=== PATIENT | female | born 1945 | race Two or more races ===

== ENCOUNTER → 2024-01-14 | Outpatient (CLI) | payer MEDICARE, MEDICAID, SELFPAY ==
[2024-01-14 10:05] LABS: Collection Type, Urine Clean Catch
[2024-01-14 10:29] LABS: Basophils # (Auto) 0.1 Thou/mm3 (0.0-0.2); Basophils % (Auto) 1 % (0-2.5); Eosinophils # (Auto) 0.2 Thou/mm3 (0.0-0.5); Eosinophils % (Auto) 4 % (0-10); Hematocrit 44.4 % (36.0-46.0); Hemoglobin 14.5 g/dL (12.0-16.0); Immature Granulocytes % (Auto) 0 % (0-0); Immature Granulocytes Auto 0.01 Thou/mm3 (0.00-0.00); Lymphocytes # (Auto) 2.3 Thou/mm3 (1.0-4.8); Lymphocytes % (Auto) 38 % (10-50); Mean Corpuscular HGB Conc 32.7 g/dl (31.0-37.0); Mean Corpuscular Hemoglobin 31.3 pg (25.0-35.0); Mean Corpuscular Volume 96 fL (80-100); Monocytes # (Auto) 0.3 Thou/mm3 (0.0-0.8); Monocytes % (Auto) 5 % (0-12); Neutrophils # (Auto) 3.2 Thou/mm3 (1.8-7.7); Neutrophils % (Auto) 52 % (37-80); Nucleated Red Blood Cell % 0 /100 WBC (0); Platelet Count 250 Thou/mm3 (140-440); RDW Standard Deviation 49.7 fL (36.4-46.3); Red Blood Count 4.64 Miln/mm3 (4.00-5.20); White Blood Count 6.2 Thou/mm3 (3.6-11.0)
[2024-01-14 10:37] LABS: Creatinine MALB Rnd Ur 88 mg/dL (30-125); Microalbumin, Random Urine < 3 mg/L (0-300)
[2024-01-14 10:40] LABS: Alanine Aminotransferase 16 U/L (10-49); Albumin, Serum 4.5 gm/dL (3.4-4.8); Albumin/Globulin Ratio 1.6 (1.2-2.2); Alkaline Phosphatase 60 U/L (46-116); Anion Gap 7 (7-16); Aspartate Amino Transferase 19 U/L (0-34); BUN/Creatinine Ratio 21 Ratio (12-20); Bilirubin,Total 0.5 mg/dL (0.3-1.2); Blood Urea Nitrogen 15 mg/dL (9-23); Calcium 9.3 mg/dL (8.3-10.6); Calcium (Corrected) 9.3 mg/dL (8.5-10.1); Carbon Dioxide 28.3 mMol/L (20.0-31.0); Cardiac Risk Estimate 3.7 RATIO (3.7-5.6); Chloride 105 mMol/L (98-107); Cholesterol 231 mg/dL (132-200); Creatinine (Component) 0.7 mg/dL (0.6-1.3); Globulin 2.8 gm/dL (2.3-3.5); Glucose 126 mg/dL (74-106); HDL Cholesterol 62 mg/dL (40-60); LDL Cholesterol,Calculated 122 mg/dL (0-130); Osmolality,Calculated 282 (275-295); Potassium 4.6 mMol/L (3.4-5.1); Sodium 140 mMol/L (136-145); Total Protein 7.3 gm/dL (5.7-8.2); Triglycerides 235 mg/dL (30-150); eGFR > 60 See Note
[2024-01-14 10:41] LABS: Bacteria,Urine 2+; Bilirubin,Urine Negative (Negative); Blood,Urine Negative (Negative); Clarity,Urine Hazy (Clear/Hazy); Color,Urine Lt-Yellow (Lt Yel-Yel); Glucose, Urine 4+ (Negative); Ketones,Urine Negative (Negative); Leukocyte Esterase,Urine Positive (Negative); Nitrite,Urine Negative (Negative); PH,Urine 5.5 (5.0-7.0); Protein,Urine Negative (Neg - Trace); RBC,Urine 2 /hpf (0-3); Specific Gravity,Urine 1.027 (1.001-1.035); Squamous Epithelial Cell,Urine 1 /hpf (0-5); Urobilinogen,Urine Negative mg/dL (0.0-1.0); WBC,Urine 16 /hpf (0-5)
[2024-01-14 10:51] LABS: Glucose Estimated Average 137 mg/dL (80-131); Hemoglobin A1C 6.4 % Hgb (4.8-6.0)
[2024-01-14 10:58] LABS: Ferritin 29 ng/mL (7.3-270.7); Total Iron Binding Capacity 360 mcg/dL (250-425)
[2024-01-14 11:08] LABS: Iron 83 mcg/dL (50-170); Percent Iron Saturation 23 % (20-55); Unsaturated Iron Binding 277 (225-295)
[2024-01-14 11:14] LABS: Folate 14.81 ng/mL (>5.38); Hepatitis C Antibody Non Reactive (Non React); Vitamin B12 1949 pg/mL (211-911); Vitamin D 25 Hydroxy Total 33.2 ng/mL (7.3-40.2)
== END | disposition home or self-care (01) ==
LOC: COPL 09:12
PROVIDERS: PCP Family Medicine; Referring Provider Nurse Practitioner Family; Visit Provider Nurse Practitioner Family
DX: D64.9 Anemia, unspecified (principal); I10 Essential (primary) hypertension; E78.5 Hyperlipidemia, unspecified; E11.9 Type 2 diabetes mellitus without complications; E55.9 Vitamin D deficiency, unspecified; Z11.59 Encounter for screening for other viral diseases
CPT/HCPCS: 36415; 80053; 80061; 81001; 82043; 82306; 82570; 82607; 82728; 82746; 83036; 83540; 83550; 85025; 86803

== ENCOUNTER → 2024-06-16 | Outpatient (CLI) | payer MEDICARE, MEDICAID, SELFPAY ==
--- NOTE | 2024-06-16 | XR_ITS ---
Examination: Retroperitoneal ultrasound, complete Technique: Multiple high resolution grayscale images of the retroperitoneum obtained, including kidneys and bladder. Exam date and time:June 16, 2024 1214 hours INDICATIONS: Urinary incontinence 2 years FINDINGS: Right kidney 12.6 cm in the cortex 2.3 cm 8mm midpole cyst 8 mm midpole calculus Left kidney 10.9 cm cortex 2.0 cm Mild bilateral renal parenchymal scar formation No bladder mass or bladder calculi Bladder prevoid volume 222 cc IMPRESSION: 8mm nonobstructing right renal calculus Mild bilateral renal parenchymal scar formation
--- NOTE | 2024-06-16 12:36 | XR_ITS ---
Examination: Diagnostic digital mammography, unilateral, left Computer aided detection 3-D breast Tomosynthesis, unilateral Date and time of exam: June 16, 2024 at 1253 hours INDICATIONS: Mammogram December 28, 2023 small focal asymmetry outer left breast CC view Technique: Nonmagnified MLO, CC views of the left breast have been obtained, reconstructed from 3-D Tomosynthesis images. R2 computer aided detection program utilized for evaluation of suspicious masses and/or abnormal calcifications. 3-D Tomosynthesis images obtained. Findings: Scattered areas of fibroglandular density. Benign calcifications. No interval suspicious masses Impression: BI-RADS category 2: Benign findings Recommend yearly follow-up mammography
== END | disposition home or self-care (01) ==
PROVIDERS: PCP Family Medicine; Referring Provider Nurse Practitioner Family; Visit Provider Urology
DX: R92.322 Mammographic fibroglandular density, left breast (principal); R92.1 Mammographic calcification found on diagnostic imaging of breast; N20.0 Calculus of kidney; N28.89 Other specified disorders of kidney and ureter
CPT/HCPCS: 76770; 77061; 77065; G0279

== ENCOUNTER → 2024-06-26 | Outpatient (BNVA) | payer MEDICARE, MEDICAID, SELFPAY | END | disposition home or self-care (01) | PROVIDERS: PCP Family Medicine; Referring Provider Family Medicine; Visit Provider Urology | DX: N39.46 Mixed incontinence (principal); I10 Essential (primary) hypertension; E11.9 Type 2 diabetes mellitus without complications; E66.9 Obesity, unspecified; Z68.33 Body mass index [BMI] 33.0-33.9, adult | CPT/HCPCS: 81003; 99212; G0463 ==

== ENCOUNTER 2024-08-16 15:14 | Emergency (ER) | payer MEDICARE, MEDICAID, SELFPAY ==
--- NOTE | 2024-08-16 | XR_ITS ---
MRI abdomen, without contrast. MRCP Date and time of exam: August 16, 2024 1815 hours INDICATIONS: Elevated total bilirubin and laboratory examination today, right upper abdominal pain today Technique: Multiple axial and coronal images of the abdomen have been obtained with the Siemens 1.5T MRI scanner. Images obtained included T1 weighted transverse images, T2-weighted transverse images, T2-weighted transverse images fat-suppressed, T2 weighted haste fat suppressed transverse images, T1 weighted images, in and out of phase images, T2-weighted coronal images, breath hold, T2 weighted haze coronal images as well as T2 weighted coronal thick slab images, MRCP. Findings: Liver 17 cm no intrahepatic biliary tract dilatation Multiple subcentimeter gallstones Gallbladder wall does not appear thickened Common bile duct 5 mm No common hepatic or common bile duct stones Spleen is not enlarged No pancreatic mass Pancreatic duct is not dilated No ascites No hydronephrosis IMPRESSION: Rule out hepatomegaly Cholelithiasis, negative for cholecystitis No common hepatic or common bile duct stones
[2024-08-16 15:15] VITALS: BMI 37.8
[2024-08-16 15:32] VITALS: BP 109/69; PULSE 80; RESP 20; TEMP 36.5; O2SAT 95
--- NOTE | 2024-08-16 15:37 | EKG_ITS ---
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
--- NOTE | 2024-08-16 15:37 | XR_ITS ---
Examination: PA lateral chest 2 views Technique: Upright PA lateral chest 2 views Date and time: August 16, 2024, 1554 hrs. Indications: Chest pain today Comparison: July 12, 2017 Findings: Mild enlargement cardiac contour. Retrocardiac gastric hernia. Mild opacity at the right lung base. Mild Central pulmonary arteries Prominent osteopenia Impression: Suspicious for pulmonary artery hypertension Early pneumonia right base
--- NOTE | 2024-08-16 15:40 | EDRME_ITS ---
Rapid Medical Screening Exam E Arrival date/time: 08/16/24 15:14 This is a 79-year-old female that comes to the emergency room with complaints of chest pain, chest tightness epigastric area pain as well that radiates to his back. Patient has a history of diabetes, hyperlipidemia, high blood pressure. Patient has medical records manager at bedside. Patient also complains of nausea. I have greeted and performed a focused initial assessment of this patient. Initial appropriate labs ordered at this time. A comprehensive ED assessment and evaluation of the patient and analysis of all test and completion of medical decision making process will be conducted by additional ED provider. Chief Complaint: Abdominal Pain Time Seen by Provider: 08/16/24 15:21 Vital signs: Vital Signs Temperature 97.7 F 08/16/24 15:32 Pulse Rate 80 08/16/24 15:32 Respiratory Rate 20 08/16/24 15:32 Blood Pressure 109/69 08/16/24 15:32 Pulse Oximetry (%) 95 08/16/24 15:32 Oxygen Delivery Method Room Air 08/16/24 15:32
[2024-08-16 16:22] LABS: Basophils % (Auto) 0 % (0-2.5); Eosinophils % (Auto) 0 % (0-10); Hematocrit 43.7 % (36.0-46.0); Hemoglobin 14.7 g/dL (12.0-16.0); Immature Granulocytes % (Auto) 0 % (0-0); Immature Granulocytes Auto 0.03 Thou/mm3 (0.00-0.00); Lymphocytes # (Auto) 0.5 Thou/mm3 (1.0-4.8); Lymphocytes % (Auto) 5 % (10-50); Mean Corpuscular HGB Conc 33.6 g/dl (31.0-37.0); Mean Corpuscular Hemoglobin 31.8 pg (25.0-35.0); Mean Corpuscular Volume 95 fL (80-100); Monocytes # (Auto) 0.2 Thou/mm3 (0.0-0.8); Monocytes % (Auto) 2 % (0-12); Neutrophils # (Auto) 10.2 Thou/mm3 (1.8-7.7); Neutrophils % (Auto) 93 % (37-80); Nucleated Red Blood Cell % 0 /100 WBC (0); Platelet Count 227 Thou/mm3 (140-440); Red Blood Count 4.62 Miln/mm3 (4.00-5.20); White Blood Count 10.9 Thou/mm3 (3.6-11.0)
[2024-08-16 16:43] LABS: Collection Type, Urine Voided
[2024-08-16 16:52] LABS: B-Type Natriuretic Peptide < 20 pg/mL (0-100)
[2024-08-16 16:54] LABS: Alanine Aminotransferase 284 U/L (10-49); Albumin, Serum 4.4 gm/dL (3.4-4.8); Albumin/Globulin Ratio 1.4 (1.2-2.2); Alkaline Phosphatase 181 U/L (46-116); Anion Gap 9 (7-16); Aspartate Amino Transferase 656 U/L (0-34); BUN/Creatinine Ratio 14 Ratio (12-20); Bilirubin,Total 1.7 mg/dL (0.3-1.2); Blood Urea Nitrogen 13 mg/dL (9-23); Carbon Dioxide 28.5 mMol/L (20.0-31.0); Chloride 108 mMol/L (98-107); Creatinine (Component) 0.9 mg/dL (0.6-1.3); Estimated Creatinine Clearance 52.8 mL/min (>60); Globulin 3.2 gm/dL (2.3-3.5); Glucose 166 mg/dL (74-106); Lipase 48 U/L (12-53); Osmolality,Calculated 292 (275-295); Potassium 3.7 mMol/L (3.4-5.1); Sodium 145 mMol/L (136-145); Total Protein 7.6 gm/dL (5.7-8.2); Troponin I < 0.020 ng/mL (0.0-0.045); eGFR > 60 See Note
[2024-08-16 17:11] LABS: Bacteria,Urine 4+; Bilirubin,Urine Negative (Negative); Blood,Urine Negative (Negative); Budding Yeast,Urine Present; Color,Urine Yellow (Lt Yel-Yel); Glucose, Urine 4+ (Negative); Ketones,Urine Trace (Negative); Leukocyte Esterase,Urine Positive (Negative); Nitrite,Urine Negative (Negative); Protein,Urine Negative (Neg - Trace); RBC,Urine 1 /hpf (0-3); Specific Gravity,Urine 1.033 (1.001-1.035); Squamous Epithelial Cell,Urine 2 /hpf (0-5); WBC,Urine 8 /hpf (0-5)
[2024-08-16 17:13] LABS: Clarity,Urine Hazy (Clear/Hazy); Culture Indicated,Urine Yes
--- NOTE | 2024-08-16 17:36 | EDNOTE_ITS ---
<Statement entered by Jacqueline Zazueta MD - 08/17/24 04:32> As co-signing physician, I was present and available for consult prn. I concur with the plan and care as documented by the midlevel provider. ED Abdominal Pain RME/HPI General Chief Complaint: Abdominal Pain Stated complaint: EPIGASTIC PAIN SINCE 0900 Time seen by provider: 08/16/24 15:21 Arrival date/time: 08/16/24 15:14 RME / HPI RME / HPI narrative: 79-year-old female that comes to the emergency room with complaints of chest pain, chest tightness epigastric area pain as well that radiates to his back. Patient has a history of diabetes, hyperlipidemia, high blood pressure. Patient has park activities coordinator at bedside. Patient also complains of nausea. Patient denies any fever. Denies any other complaints no medication was taken prior to arrival. Related Data Home Medications ?Medication ?Instructions ?Recorded ?Confirmed aspirin 81 mg tablet,delayed 81 mg PO QDAY 08/15/17 release (Aspir-) atenolol 100 mg tablet 100 mg PO QDAY 08/15/1710/13 folic acid 1 mg tablet 1 mg PO QDAY 08/15/17 ibuprofen 600 mg tablet 600 mg PO BID PRN Pain 08/1506/26/24 loratadine 10 mg tablet 10 mg PO QDAY 08/15/1706/26 losartan 50 mg tablet 50 mg PO QDAY 08/15/1706/26 methotrexate 2.5 mg/mL oral 2.5 mg PO QDAY 08/15/17 solution estradiol 0.01% (0.1 mg/gram) 2 g vaginal DIRECTED 06/26/24 06/26/24 vaginal cream (Estrace) vibegron 75 mg tablet (Gemtesa) 75 mg PO QDAY 06/26/24 06/26/24 Previous Rx's ?Medication ?Instructions ?Recorded meloxicam 15 mg tablet (Mobic) 15 mg PO QDAY #30 tabs 02/06/16 Acetaminophen ER * (TYLENOL ER *) 650 mg PO Q8HR PRN P AIN OR FEVER > 03/03/17 101 ##30 Loratadine/Pseudoephedrine (24 1 tab PO QDAY ##10 02/19 05/06 HOUR) * (CLARITIN D (24 HOUR) *) Promethazine Hcl/Dextromethorphan 1 tsp PO Q6HR PRN co ugh #6 oz 03/03/17 SYRUP * (PHENERGAN DM SYRUP *) ibuprofen 600 mg tablet 600 mg PO Q6HR PRN PAIN OR F EVER > 03/03/17 101 #30 tabs cephalexin 500 mg capsule 500 mg PO Q6H 7 days #28 cap s 08/16/24 dicyclomine 20 mg tablet 20 mg PO QID PRN abdominal p ain 08/16/24 #20 tabs ondansetron HCl 4 mg tablet 4 mg PO TID PRN nausea and 08/16/24 vomiting 5 days #20 tabs Allergies Allergy/AdvReac Type Severity Reaction Status Date / Time No Known Allergies Allergy Unverified 08/16/24 15:17 Review of Systems Review of Systems Narrative Review of Systems: Review of system reviewed and within normal limits except mentioned in HPI ED Exam Narrative Physical exam: VITAL SIGNS: Reviewed. GENERAL APPEARANCE: Alert and interactive, follows commands, no acute distress, HEAD AND FACE: Non-traumatic. ENT: PERRL, pink conjunctivitis, eyelid no trauma, Mucous membrane moist. NECK: Supple, nontender, no nuchal rigidity. CHEST: No tenderness, no crepitus, no paradoxical movement, no retractions. LUNGS: Clear, well ventilated, symmetric, no rales, no wheezing, no ronchi, no stridor, good breath sounds bilaterally. HEART: Regular rate, regular rhythm, no murmur, no gallops. ABDOMEN: Soft, positive bowel sounds, nondistended, no guarding, right upper quadrant tenderness, no rebound, no masses, RECTAL: Deferred. GENITAL: Deferred. NEUROLOGICAL: Gross motor function intact sensory function intact, Appropriate for age. MUSCULOSKELETAL: low back nontender, full range of motion. EXTREMITIES: Nontender, full range of motion. SKIN: Color pink, dry, no rash, no lacerations, no abrasions, no contusions. LYMPHATICS: Deferred. Course Quality Measures none Orders Category Date Time Status EKG (ED ONLY) *Do not use* NOW Care 08/16/24 15:38 Completed MRI Screening NOW Care 08/16/24 17:33 Active EKG (ED Only) Stat Exams 08/16/24 15:37 Draft MR MRCP Stat Exams 08/16/24 Completed XR chest 2V Stat Exams 08/16/24 15:37 Completed BNP [B-Type Natriuretic Peptide] Stat Lab 08/16/24 16:13 Completed Bilirubin,Direct Stat Lab 08/16/24 18:02 Completed CBC Stat Lab 08/16/24 16:13 Completed Comprehensive Metabolic Panel Stat Lab 08/16/24 16:13 Completed Hepatitis Acute Panel Stat Lab 08/16/24 18:02 Received Lipase Stat Lab 08/16/24 16:13 Completed Troponin I Stat Lab 08/16/24 16:13 Completed Urinalysis, C/S if Indicated Stat Lab 08/16/24 16:20 Completed Urine Culture Stat Lab 08/16/24 16:20 Received Famotidine Inj [Pepcid Inj] Med 08/16/24 17:33 Discontinued 20 mg IVP X1 ONE Ondansetron Inj [Zofran Inj] Med 08/16/24 17:33 Discontinued 4 mg IVP X1 ONE Piper/Tazo 3.375 gm Premix [Zosyn] Med 08/16/24 17:36 Discontinued 3.375 gm in 50 ml IV X1 Ringers Lactated 1000 ml [Lactated Ringers] 1,000 ml Med 08/16/24 17:34 Discontinued IV 999 mls/hr Vital Signs Vital signs: Vital Signs Temperature 97.7 F 08/16/24 15:32 Pulse Rate 80 08/16/24 15:32 Respiratory Rate 20 08/16/24 15:32 Blood Pressure 109/69 08/16/24 15:32 Pulse Oximetry (%) 95 08/16/24 15:32 Oxygen Delivery Method Room Air 08/16/24 15:32 Abdominal Pain MDM MDM Narrative MDM Narrative:: 79-year-old female that comes to the emergency room with complaints of chest pain, chest tightness epigastric area pain as well that radiates to his back. Patient has a history of diabetes, hyperlipidemia, high blood pressure. Patient has park activities coordinator at bedside. Patient also complains of nausea. Patient denies any fever. Denies any other complaints no medication was taken prior to arrival. EKG shows sinus rhythm, ventricular rate of 84 bpm, no ST segment elevation dep ression noted. Patient's laboratory workup is significant for UTI, patient total bili was noted to be slightly elevated 1.7, direct bili 1.0 AST of 650 the 6, alkaline phos of 181, ALT of 284. The rest of the labs unremarkable. MRCP showed cholelithiasis with no sign of acute cholecystitis. Common bile duct stone noted. Patient data External records reviewed:: None Clinical information provided by:: patient Social determinants that could affect healthcare access:: none Patient has the following chronic illnesses:: None How is presenting disease/condition affected by chronic disease/condition?: no chronic disease Evaluation data The following diagnostics were reviewed and interpreted by me:: lab results, radiology exam(s) and EKG tracing(s) Lab and/or radiology exams considered but not ordered:: None Interpretation Summary: See results MDM Medications / Prescriptions Medications or Prescriptions considered but not ordered:: None Medication administrations:: Medication Administration History Discontinued Medications Famotidine (Famotidine Inj 10 Mg/Ml Vial 2 Ml) 20 mg IVP X1 ONE Stop: 08/16/24 17:34 Last Admin: 08/16/24 17:56 Dose: 20 mg Documented By: Admin: 08/16/24 17:55 Dose: 20 mg Documented By: LISBET Lactated Ringer's (Lactated Ringers) 1,000 mls @ 999 mls/hr IV .Q1H1M ONE Stop: 08/16/24 18:34 Last Infusion: 08/16/24 20:50 Dose: Infused Documented By: Admin: 08/16/24 19:40 Dose: 999 mls/hr Documented By: ATQUERIA Piperacillin/Tazobactam/Dextrose (Zosyn) 3.375 gm in 50 mls @ 100 mls/hr IV X1 ONE Stop: 08/16/24 18:05 Last Infusion: 08/16/24 20:13 Dose: Infused Documented By: Admin: 08/16/24 19:40 Dose: 100 mls/hr Documented By: TAQUERIA Ondansetron HCl (Ondansetron Inj 2 Mg/Ml Inj 2 Ml) 4 mg IVP X1 ONE; Protocol Stop: 08/16/24 17:34 Last Admin: 08/16/24 19:41 Dose: Not Given Documented By: TAQUERIA Non-Admin Reason: Patient Refused IV Zosyn, Zofran, IV fluids and Pepcid Consultations Consultation(s) initiated? (list below): No Diagnosis Differential diagnosis abdominal pain: abdominal pain, diverticulitis, pancreatitis and other (Choledocholithiasis, UTI) Most likely diagnosis given after review of the tests above:: Cholecystitis, UTI, no sign of acute cholecystitis Admission Indicated Admission indicated?: not indicated Explain why admission is indicated or not indicated:: Stable Admission Request Was there a request for admission?: No Disposition Plan Disposition Plan: Discharge Discharge Attestation Discharge Attestation: The patient and all family members were given an opportunity to ask questions and understood the discharge instructions. Discharge instructions specifically effects, indications for sooner follow up or return to the emergency department, and the expected course of current diagnosis. Patient condition: Stable Discharge Plan Plan Patient Disposition: HOME (Self Care) Discharge Disposition comment: Stable Prescriptions/Referrals Prescriptions/Med Rec: New ondansetron HCl 4 mg tablet 4 mg PO TID PRN (Reason: nausea and vomiting) 5 Days Qty: 20 0RF cephalexin 500 mg capsule 500 mg PO Q6H 7 Days Qty: 28 0RF dicyclomine 20 mg tablet 20 mg PO QID PRN (Reason: abdominal pain) Qty: 20 0RF No Action estradiol [Estrace] 0.01 % (0.1 mg/gram) cream 2 g vaginal DIRECTED Patient Comments: Twice a week Gemtesa 75 mg tablet 75 mg PO QDAY meloxicam [Mobic] 15 MG tablet 15 mg PO QDAY Qty: 30 0RF Acetaminophen ER * (TYLENOL ER *) 650 MG TABLET.ER 650 mg PO Q8HR PRN (Reason: PAIN OR FEVER > 101) Qty: 30 0RF ibuprofen 600 MG tablet 600 mg PO Q6HR PRN (Reason: PAIN OR FEVER > 101) Qty: 30 0RF Loratadine/Pseudoephedrine (24 HOUR) * (CLARITIN D (24 HOUR) *) 1 EACH TAB.SR.24H 1 tab PO QDAY Qty: 10 0RF Promethazine Hcl/Dextromethorphan SYRUP * (PHENERGAN DM SYRUP *) 473 ML syrup 1 tsp PO Q6HR PRN (Reason: cough) Qty: 6 0RF losartan 50 mg Tablet 50 mg PO QDAY atenolol 100 mg Tablet 100 mg PO QDAY aspirin [Aspir-81] 81 mg Tablet,Delayed Release (Dr/Ec) 81 mg PO QDAY folic acid 1 mg Tablet 1 mg PO QDAY ibuprofen 600 mg Tablet 600 mg PO BID PRN (Reason: Pain) loratadine 10 mg Tablet 10 mg PO QDAY methotrexate 2.5 mg/mL Solution 2.5 mg PO QDAY Referrals: Shira Lindsey NP [Primary Care Provider] - In 1 week Problem List Clinical Impression: Cholelithiasis, UTI (urinary tract infection), Transaminitis Patient/Caregiver Discharge Instructions Discharge Activity: activity as tolerated Education Materials: ED Gallstones with Biliary Colic Additional Instructions: Thank you for the opportunity for serving you today. You are stable for discharged . You are advised to: Follow-up with your PCP in 1 to 2 days Return to ED for worsening of symptoms Increase oral fluids Take medication as prescribed Print Language: Maldivian Stand Alone Forms: Naomy Award Info., Patient Portal Info Letter PA/ITZEL Supervising Physician DIANDRA/ITZEL Supervising Physician: MD Carlita
[2024-08-16] MEDS: FAMOTIDINE INJ 10 MG/ML VIAL 2 ML 20 MG IVP ×2 (17:55→17:56)
[2024-08-16 19:37] VITALS: BP 140/68; PULSE 100; RESP 16; TEMP 37.4; O2SAT 94
[2024-08-16] MEDS: RINGERS LACTATED 1000 ML 1,000 ML 999 ML IV (19:40)
[2024-08-16] MEDS: PIPER/TAZO 3.375 GM PREMIX 3.375 GM/50 ML BAG IV (19:40)
[2024-08-16 21:34] VITALS: BP 143/64; PULSE 74; RESP 18; TEMP 36.6; O2SAT 99
[2024-08-17 20:11] LABS: Hepatitis A Antibody IgM Non Reactive (Non React); Hepatitis B Core Antibody IgM Non Reactive (Non React); Hepatitis B Surface Antigen Non Reactive (Non React); Hepatitis C Antibody Non Reactive (Non React)
== END 2024-08-16 21:35 | disposition home or self-care (01) ==
PROVIDERS: Nurse Practitioner Family; Emergency Provider Emergency Medicine; PCP Nurse Practitioner Family
DX: K80.20 Calculus of gallbladder without cholecystitis without obstruction (principal); N39.0 Urinary tract infection, site not specified; E11.9 Type 2 diabetes mellitus without complications; E78.5 Hyperlipidemia, unspecified; R94.31 Abnormal electrocardiogram [ECG] [EKG]; J18.9 Pneumonia, unspecified organism
CPT/HCPCS: 36415; 71046; 80053; 80074; 81001; 82248; 83690; 83880; 84484; 85025; 87077; 87086; 87186; 93005; 96361; 96365; 96375; 99284; J2543; J3490; J7120; S8037; 74181

== ENCOUNTER → 2024-09-09 | Outpatient (CLI) | payer MEDICARE, MEDICAID, SELFPAY ==
--- NOTE | 2024-09-09 10:30 | XR_ITS ---
Examination: Abdomen sonogram, Limited Date and time of exam: September 09, 2024 1010 hours INDICATIONS: Elevated liver function tests on laboratory examination August 16, 2024. Technique: Real-time cervantes scale transabdominal sonographic images of the upper abdomen obtained. Findings: Multiple small gallstones Normal gallbladder wall 0.2 cm Common bile duct 0.5 cm Pancreatic head 2.7 cm Liver 14.3 cm smooth contour Normal hepatopedal portal venous. Patent IVC IMPRESSION: Cholelithiasis, negative for cholecystitis
== END | disposition home or self-care (01) ==
LOC: CDIM 10:28
PROVIDERS: PCP Nurse Practitioner Family; Referring Provider Nurse Practitioner Family; Visit Provider Nurse Practitioner Family
DX: K80.20 Calculus of gallbladder without cholecystitis without obstruction (principal)
CPT/HCPCS: 76705

== ENCOUNTER → 2024-11-04 | Outpatient (BNVA) | payer MEDICARE, MEDICAID, SELFPAY | END | disposition home or self-care (01) | PROVIDERS: PCP Family Medicine; Referring Provider Family Medicine; Visit Provider Urology | DX: N39.46 Mixed incontinence (principal); Z87.440 Personal history of urinary (tract) infections; I10 Essential (primary) hypertension; E11.9 Type 2 diabetes mellitus without complications; E66.9 Obesity, unspecified | CPT/HCPCS: 81003; 99212; G0463 ==

== ENCOUNTER 2024-11-25 05:45 | Day surgery (SDC) | payer MEDICARE, MEDICAID, SELFPAY ==
[2024-11-21 12:21] VITALS: BMI 30.1
[2024-11-21 13:16] LABS: Basophils # (Auto) 0.1 Thou/mm3 (0.0-0.2); Basophils % (Auto) 1 % (0-2.5); Eosinophils # (Auto) 0.2 Thou/mm3 (0.0-0.5); Eosinophils % (Auto) 2 % (0-10); Hematocrit 44.5 % (36.0-46.0); Hemoglobin 14.8 g/dL (12.0-16.0); Immature Granulocytes Auto 0.02 Thou/mm3 (0.00-0.00); Lymphocytes # (Auto) 2.7 Thou/mm3 (1.0-4.8); Lymphocytes % (Auto) 34 % (10-50); Mean Corpuscular HGB Conc 33.3 g/dl (31.0-37.0); Mean Corpuscular Hemoglobin 32.0 pg (25.0-35.0); Mean Corpuscular Volume 96 fL (80-100); Monocytes # (Auto) 0.5 Thou/mm3 (0.0-0.8); Monocytes % (Auto) 7 % (0-12); Neutrophils # (Auto) 4.4 Thou/mm3 (1.8-7.7); Neutrophils % (Auto) 56 % (37-80); Nucleated Red Blood Cell # 0.00 Thou/mm3 (0.00-0.00); Nucleated Red Blood Cell % 0 /100 WBC (0); Platelet Count 220 Thou/mm3 (140-440); RDW Standard Deviation 50.5 fL (36.4-46.3); Red Blood Count 4.62 Miln/mm3 (4.00-5.20); White Blood Count 7.9 Thou/mm3 (3.6-11.0)
[2024-11-21 13:24] LABS: INR 1.0 (0.9-1.3); Partial Thromboplastin Time 28.2 Seconds (22.0-36.0); Prothrombin Time 10.3 Seconds (9.0-12.2)
[2024-11-21 13:34] LABS: Alanine Aminotransferase 13 U/L (10-49); Albumin, Serum 4.5 gm/dL (3.4-4.8); Albumin/Globulin Ratio 1.6 (1.2-2.2); Alkaline Phosphatase 72 U/L (46-116); Anion Gap 8 (7-16); Aspartate Amino Transferase 25 U/L (0-34); BUN/Creatinine Ratio 21 Ratio (12-20); Bilirubin,Total 0.5 mg/dL (0.3-1.2); Blood Urea Nitrogen 15 mg/dL (9-23); Calcium 9.3 mg/dL (8.3-10.6); Calcium (Corrected) 9.3 mg/dL (8.5-10.1); Carbon Dioxide 28.6 mMol/L (20.0-31.0); Chloride 106 mMol/L (98-107); Creatinine (Component) 0.7 mg/dL (0.6-1.3); Estimated Creatinine Clearance 65.1 mL/min (>60); Globulin 2.9 gm/dL (2.3-3.5); Glucose 101 mg/dL (74-106); Osmolality,Calculated 285 (275-295); Potassium 4.2 mMol/L (3.4-5.1); Sodium 143 mMol/L (136-145); Total Protein 7.4 gm/dL (5.7-8.2); eGFR > 60 See Note
[2024-11-25] VITALS (7 sets, daily range): BP systolic 126–142; BP diastolic 72–80; PULSE 66–76; RESP 13–20; TEMP 36.6–36.8; O2SAT 95–100; BMI 29.7
--- NOTE | 2024-11-25 07:18 | CHAP ---
Prayed with patient concerning upcoming procedure.
--- NOTE | 2024-11-25 10:14 | SUR.PHASEI ---
1014 patient arrived [place] [facility] [place] 4L via nasal cannula, breathing unlabored, vital signs stable, denies pain and nausea, dressing intact to abdomen sutures, gauze, medipore tape, no bleeding noted, report received from Dr. Hernandez and Clover BALLARD
--- NOTE | 2024-11-25 10:49 | ESOP_ITS ---
Date of Procedure 11/25/24 Pre Op Diagnosis Symptomatic cholelithiasis Post Op Diagnosis Same Procedure Laparoscopic cholecystectomy Findings Patient is found to have a noninflamed gallbladder with multiple small stones Procedure Description After endotracheal anesthesia was given the patient was placed in supine position and the abdomen was prepped with chloroprep solution and draped in a sterile manner. After time out was performed I injected a few cc of of half percent Marcaine with epinephrine below the umbilicus and I made an incision for about 3 cm in length. The fascia was cleaned and Veress needle was inserted to create a pneumoperitoneum up to 15 mmHg. Then introduced a 12 mm trocar and a 10 mm camera through the fascia and I inspected the intra-abdominal organs as well as the gallbladder and the liver. Another 5 mm trocar was inserted in the epigastric region under direct vision after injecting some local anesthesia. At this time the patient was kept in reverse Trendelenburg position with the left lateral tilt. The third 5 mm trocar was inserted over the mid axillary line under direct vision and a Rojelio and Petra grasper was used to hold the fundus of the gallbladder. The retraction was carried out by the operations and intelligence assistant moving the fundus of the gallbladder towards the right shoulder of the patient to create en ough traction. I placed a another 5 mm trocar in the midaxillary line just lateral to the rectus muscle under direct vision. I used a fenestrated grasper to retract the neck of the gallbladder laterally towards the patient's right hip. The Calot's triangle was exposed and I achieved the critical view of safety as follows: I dissected out the fatty tissue from the hepatocystic triangle and cleared this area. I also dissected inferior and posterior to the gallbladder to identify the cystic duct and the gallbladder wall. Then superiorly I dissected along the cystic plate up to lower one third third of the gallbladder to lift the gallbladder from the liver. At this time I confirmed that only 2 structures entering the gallbladder were cystic artery and the cystic duct. The common duct was seen distally but no dissection was carried out around the duct. I did not see any need for operative cholangiogram in this patient. The cystic duct was clipped doubly and then divided and cystic artery was similarly dealt with. Then the gallbladder was removed from the liver bed using Harmonic sathish to control the small blood vessels as the dissection proceeded. Then the gallbladder was from the liver bed completely and delivered through the umbilical port using an Endopouch. The liver bed was coagulated with cautery to obtain satisfactory hemostasis. The trocars were pul led out from the abdominal cavity and the fascia at the umbilical incision was closed with interrupted 0 Ethibond. Subcutaneous tissues was closed with 3-0 chromic and injected a few cc of half percent Marcaine with epinephrine and the skin was closed with interrupted 4-0 nylon stitches at all the trocar sites. Dressing was applied with 2 x 2 and Tegaderm. Patient tolerated the procedure well and returned to recovery room in stable condition. Anesthesia GETA Pathology / specimen Other (Gallbladder and the stones) Estimated Blood Loss 25 Condition Stable Disposition PACU Surgeon Georgette Hirsch MD Surgical Staff Operation Date: 11/25/24 08:00 Case Staff Anesthesiologist: Cristobal Hernandez RN First Assistant: Meg Downey
--- NOTE | 2024-11-25 11:14 | SUR.PHASEII ---
patient dressed in her clothing awaiting caregiver to arrive
--- NOTE | 2024-11-25 11:17 | SUR.PHASEII ---
patient ate a jello and drinking 7up; tolerating well
--- NOTE | 2024-11-25 11:36 | SUR.PHASEII ---
1136 Patient meets discharge criteria from recovery awake and alert, breathing unlabored, vital signs stable, denies pain, ate a jello and drinking 7up; denies nausea, voided in the restroom, assisted with dressing into her clothing by this loan underwriter, discharge instructions given to patient and patients caregiver with the assistance of the telephone interpreter and translator Beau ID# [id number], caregiver signed discharge instructions. Patient given all her belongings prior to discharge, transported via wheelchair and left in a private vehicle.
== END 2024-11-25 11:36 | disposition home or self-care (01) ==
PROVIDERS: PCP Nurse Practitioner Family; Referring Provider Surgery; Visit Provider Surgery
PROC: 0FT44ZZ Resection of Gallbladder, Percutaneous Endoscopic Approach (ICD-10-PCS; CPT 47562; principal; 2024-11-25 08:00)
DX: K80.10 Calculus of gallbladder with chronic cholecystitis without obstruction (principal); E11.9 Type 2 diabetes mellitus without complications; I10 Essential (primary) hypertension; M19.90 Unspecified osteoarthritis, unspecified site; Z79.899 Other long term (current) drug therapy; Z79.82 Long term (current) use of aspirin
CPT/HCPCS: 47562; 36415; 80053; 85025; 85610; 85730; A4217; A4649; J0131; J1100; J2250; J2371; J2405; J2704; J3010; J3490; A9270

== ENCOUNTER → 2025-01-20 | Outpatient (CLI) | payer MEDICARE, MEDICAID, SELFPAY ==
[2025-01-20 10:05] LABS: Basophils # (Auto) 0.1 Thou/mm3 (0.0-0.2); Basophils % (Auto) 1 % (0-2.5); Eosinophils # (Auto) 0.2 Thou/mm3 (0.0-0.5); Eosinophils % (Auto) 3 % (0-10); Hematocrit 43.7 % (36.0-46.0); Hemoglobin 14.2 g/dL (12.0-16.0); Immature Granulocytes Auto 0.01 Thou/mm3 (0.00-0.00); Lymphocytes # (Auto) 2.5 Thou/mm3 (1.0-4.8); Lymphocytes % (Auto) 38 % (10-50); Mean Corpuscular HGB Conc 32.5 g/dl (31.0-37.0); Mean Corpuscular Hemoglobin 32.5 pg (25.0-35.0); Mean Corpuscular Volume 100 fL (80-100); Monocytes # (Auto) 0.4 Thou/mm3 (0.0-0.8); Monocytes % (Auto) 6 % (0-12); Neutrophils # (Auto) 3.5 Thou/mm3 (1.8-7.7); Neutrophils % (Auto) 52 % (37-80); Nucleated Red Blood Cell # 0.00 Thou/mm3 (0.00-0.00); Nucleated Red Blood Cell % 0 /100 WBC (0); Platelet Count 220 Thou/mm3 (140-440); RDW Standard Deviation 53.2 fL (36.4-46.3); Red Blood Count 4.37 Miln/mm3 (4.00-5.20); White Blood Count 6.7 Thou/mm3 (3.6-11.0)
[2025-01-20 10:17] LABS: Glucose Estimated Average 126 mg/dL (80-131); Hemoglobin A1C 6.0 % Hgb (4.8-6.0)
[2025-01-20 12:01] LABS: Alanine Aminotransferase 30 U/L (10-49); Albumin, Serum 4.8 gm/dL (3.4-4.8); Alkaline Phosphatase 60 U/L (46-116); Anion Gap 10 (7-16); Aspartate Amino Transferase < 8 U/L (0-34); BUN/Creatinine Ratio 23 Ratio (12-20); Bilirubin,Total 0.7 mg/dL (0.3-1.2); Blood Urea Nitrogen 16 mg/dL (9-23); Calcium 8.8 mg/dL (8.3-10.6); Calcium (Corrected) 8.8 mg/dL (8.5-10.1); Carbon Dioxide 27.7 mMol/L (20.0-31.0); Chloride 106 mMol/L (98-107); Creatinine (Component) 0.7 mg/dL (0.6-1.3); Free T4 (Free Thyroxine) 1.12 ng/dL (0.89-1.76); Glucose 111 mg/dL (74-106); Osmolality,Calculated 289 (275-295); Potassium 4.0 mMol/L (3.4-5.1); Sodium 144 mMol/L (136-145); Thyroid Stimulating Hormone 1.26 uIU/mL (0.55-4.78); eGFR > 60 See Note
[2025-01-20 13:03] LABS: Albumin/Globulin Ratio 1.7 (1.2-2.2); Globulin 2.9 gm/dL (2.3-3.5); Total Protein 7.7 gm/dL (5.7-8.2)
[2025-01-20 13:23] LABS: Cardiac Risk Estimate 1.8 RATIO (3.7-5.6); Cholesterol 132 mg/dL (132-200); HDL Cholesterol 74 mg/dL (40-60); LDL Cholesterol,Calculated 42 mg/dL (0-130); Triglycerides 80 mg/dL (30-150)
[2025-01-20 13:38] LABS: Vitamin D 25 Hydroxy Total 31.6 ng/mL (7.3-40.2)
[2025-01-23 06:21] LABS: Direct LDL* 48 mg/dL (<100)
== END | disposition home or self-care (01) ==
LOC: COPL 09:01
PROVIDERS: PCP Nurse Practitioner Family; Referring Provider Nurse Practitioner Family; Visit Provider Nurse Practitioner Family
DX: E11.9 Type 2 diabetes mellitus without complications (principal); Z13.29 Encounter for screening for other suspected endocrine disorder; E78.5 Hyperlipidemia, unspecified; E55.9 Vitamin D deficiency, unspecified
CPT/HCPCS: 36415; 80053; 80061; 82306; 83036; 83721; 84439; 84443; 85025